=== PATIENT | female | born 1990 | race Caucasian/White ===

== ENCOUNTER 2018-12-28 06:58 | Inpatient (IN) | payer OTHER ==
[~2018-12-28] VITALS: Ht 154.9 cm; Wt 83.9 kg
[2018-12-28 07:02] VITALS: BP 126/74
[2018-12-28] MEDS ORDERED: ATIVAN0.5 MG PO (07:15)
[2018-12-28 07:26] LABS: ABSOLUTE NEUTROPHILS 4.8 thou/uL (1.4-8.2); BASOPHILS 0.4 % (0.0-2.0); EOSINOPHILS 2.7 % (0.0-3.0); HEMATOCRIT 36.8 % (37.0-47.0); HEMOGLOBIN 12.7 gm/dL (12.0-15.0); LYMPHOCYTES 28.9 % (24.0-44.0); MCH 30.3 pg (26.0-34.0); MCHC 34.6 g/dL (28.0-37.0); MCV 87.5 fL (80.0-100.0); MONOCYTES 6.1 % (1.0-8.0); PLATELET COUNT 245 thou/uL (150-400); POLYS 61.9 % (36.0-66.0); RDW 12.9 % (10.5-14.5); WBC 7.8 thou/uL (4.0-11.0)
[2018-12-28 07:35] LABS: ANION GAP 10 mmol/L (7-16); BUN 11 mg/dL (7-18); CHLORIDE 103 mmol/L (98-107); CO2 27 mmol/L (21-32); CREATININE 0.6 mg/dL (0.6-1.0); GLUCOSE 94 mg/dL (74-106); POTASSIUM 3.6 mmol/L (3.5-5.1); SODIUM 140 mmol/L (136-145)
[2018-12-28 07:41] LABS: DIRECT BILIRUBIN < 0.1 mg/dL (<0.1-0.3); SGOT 17 U/L (15-37); SGPT 25 U/L (30-65); TOTAL BILIRUBIN 0.4 mg/dL (<0.1-1.0); TOTAL PROTEIN 7.7 g/dL (6.4-8.2)
[2018-12-28 12:49] LABS: FOLIC ACID 18.4 ng/mL (8.6-58.9)
[2018-12-28 13:40] VITALS: BP 97/60
[2018-12-28] MEDS ORDERED: LEXAPRO 10 MG T10 M1 PO (14:04)
[2018-12-28] MEDS ORDERED: HYDROXYZINE HCL10 M1 PO (14:05)
[2018-12-28] MEDS ORDERED: PROBIOTIC 5 BI1 EACH PO (14:06)
[2018-12-28] MEDS ORDERED: MULTIVITAMINS1 EAC7 PO (14:08)
[2018-12-28 14:17] VITALS: BP 99/60
[2018-12-28 16:00] VITALS: BP 100/57
--- NOTE | 2018-12-28 18:31 | NUR ---
DR. HOLMAN IN TO SEE PT. PLAN FOR SURGERY IN AM AT 0830. ORDER FOR REGULAR DIET UNTIL MIDNOC. NO INCREASE IN ABD PAIN. AND KIDS HERE TO SEE PT.
[2018-12-28 21:53] VITALS: BP 124/77
--- NOTE | 2018-12-29 03:29 | NUR ---
Assumed care of pt at 1900. Pt c/o headache. Retail Performance Specialist on duty notified and new order noted. IVF infusing. Up ad julian. No abd pain. No consent in chart or orders for am surgery. Will report to am nurse. NPO after midnight. Will continue to monitor.
[2018-12-29 05:23] VITALS: BP 110/60
[2018-12-29 05:25] LABS: ABSOLUTE NEUTROPHILS 3.8 thou/uL (1.4-8.2); BASOPHILS 0.2 % (0.0-2.0); EOSINOPHILS 3.1 % (0.0-3.0); HEMATOCRIT 33.8 % (37.0-47.0); HEMOGLOBIN 11.8 gm/dL (12.0-15.0); LYMPHOCYTES 35.2 % (24.0-44.0); MCH 30.4 pg (26.0-34.0); MCHC 34.9 g/dL (28.0-37.0); MCV 87.2 fL (80.0-100.0); MONOCYTES 5.2 % (1.0-8.0); PLATELET COUNT 223 thou/uL (150-400); POLYS 56.3 % (36.0-66.0); RBC 3.87 mil/uL (4.20-5.00); RDW 13.2 % (10.5-14.5); WBC 6.8 thou/uL (4.0-11.0)
[2018-12-29 05:34] LABS: CALCIUM 8.2 mg/dL (8.5-10.1); CREATININE 0.5 mg/dL (0.6-1.0); MAGNESIUM 2.1 mg/dL (1.8-2.4); POTASSIUM 3.6 mmol/L (3.5-5.1)
[2018-12-29 07:24] LABS: ALBUMIN 3.4 g/dL (3.4-5.0); CALCIUM 8.5 mg/dL (8.5-10.1); CREATININE 0.5 mg/dL (0.6-1.0); POTASSIUM 3.7 mmol/L (3.5-5.1); TOTAL BILIRUBIN 0.3 mg/dL (<0.1-1.0); TOTAL PROTEIN 6.7 g/dL (6.4-8.2)
--- NOTE | 2018-12-29 07:57 | NUR ---
PATIENT TAKEN TO PRE OP AT THIS TIME. PT ALERT XS 4 NO PAIN OR RESP DISTRESS.
--- NOTE | 2018-12-29 12:21 | NUR ---
PT BACK IN ROOM AT THIS TIME ALERT XS 4 NO PAIN NO RESP DISTRESS, IV FLUIDS INFUSING ORDERED. WILL GIVE AM MEDS SOON PATIENT SETTLED. PT TO EAT REG DIET. FRIENDS AT BEDSIDE.
[2018-12-29 18:56] VITALS: BP 110/60
--- NOTE | 2018-12-30 03:21 | NUR ---
PATIENT ALERT AND ORIENTED X4. UP AND ABOUT. DENIES PAIN. 4 SMALL INCISIONS ON ABD HEALING. EDGES WELL APPROXIMATED, NO S/S OF INFECTION. IV FLUIDS RUNNING IN DANUTA. SLEPT MOST OF NIGHT.
[2018-12-30 04:26] VITALS: BP 100/49
[2018-12-30 07:10] VITALS: BP 116/64
[2018-12-30] MEDS ORDERED: FAMOTIDINE20 MG/2 M2 IV PUSH (11:49)
[2018-12-30] MEDS ORDERED: CELEXA 20 MG TA20 MG PO (11:49)
[2018-12-30] MEDS ORDERED: HYDROCODONE-AP1 EAC6 PO (11:49)
[2018-12-30] MEDS ORDERED: AMBIEN 5 MG TABL5 M1 PO (12:10)
[2018-12-30] MEDS ORDERED: HYDROXYZINE HCL10 M1 PO (12:13)
[2018-12-30] MEDS ORDERED: ACETAMINOPHEN325 M1 PO (12:13)
[2018-12-30] MEDS ORDERED: MIRALAX17 GM PO (12:15)
[2018-12-30 12:50] VITALS: BP 116/64
--- NOTE | 2018-12-30 13:08 | NUR ---
ASSUMED CARE OF PT AT 0700. ASSESSMENT COMPLETED. A&O,X4. POD1 LAP ELIZABETH, 4 LAP SITES WITH DERMABOND INTACT NO BLEEDING OR DRAINAGE NOTED. TYLENOL GIVEN ORDERED FOR PAIN, PAIN WELL CONTROLLED. NO N/V/D. TOLERATING REGULAR DIET. PASSING FLATUS. NEW DISCHARGE ORDERS. NO NEW SCRIPTS GIVEN. D/C INFORMATION DISCUSSED AT BEDSIDE WITH PT, STATE NO QUESTIONS OR CONCERNS. IV REMOVED, NO ACTIVE BLEEDING. PT REFUSED WHEELCHAIR ESCORT. PT LEFT IN STABLE CONDITION AMBULATORY WITH ALL BELONGINGS.
--- NOTE | 2018-12-31 11:06 | PATH ---
[facility] [address] [place] [address] PATHOLOGY RPT PROCEDURE Name: JOSE M BEAVERS Room #: 417-I [facility] IN .R.#: [id number] ������������������ Admission: 12/28/18 ������������������ Date of : 86 Discharge: 12/30/18 Report #: [id number] Path Case #: [id number] [facility] Accession Number: [id number] . 01 Material submitted: . gallbladder - GALLBLADDER . 01 Clinical history: . cholelithiasis with dilated duct . 02 Diagnosis: Gallbladder, cholecystectomy: - Mild chronic cholecystitis. - Cholesterolosis. - Cholelithiasis. (IUV/db; 12/30/2018) LBQ/12/30/2018 . 02 Electronically signed: . Anyi Rolle MD, Pathologist NPI- [id number] . 01 Gross description: . The specimen is received in formalin, labeled "Jose M Beavers, gallbladder", is a previously opened gallbladder measuring 7.7 cm in length and 3.0 cm in maximum diameter with a wrinkled, kessler-jackson serosa. The cystic duct is impacted by a calculus and is dilated. The mucosa is kessler, granular with cholesterolosis. The wall is 0.2 cm in average thickness. Within the container there are multiple irregular pale green calculi and its fragments measuring 2.8 x 2.4 x 0.7 cm in aggregate. Panel Wirer tissue is submitted in A1. ([facility]; 12/29/2018) [facility]/ . 02 Pathologist provided ICD-10: K80.10, K82.4 . 02 CPT . 022668 Specimen Comment: A courtesy copy of this report has been sent to Specimen Comment: [phone], . Specimen Comment: Report sent to / DR FLYNN Performed at: [address] [id number] MD Alli Ch MD Phone: [phone] Performed at: 02 [place] [address] PATHOLOGY RPT PROCEDURE Name: JOSE M BEAVERS Room #: 417-I [facility] IN M.R.#: [id number] ������������������ Admission: 12/28/18 ������������������ Date of : 86 Discharge: 12/30/18 Report #: [id number] Path Case #: [id number] [address] [place], [place] [id number] MD Anyi Rolle MD Phone: [phone]
== END 2018-12-30 13:20 | disposition home or self-care (01) | DRG 418 ==
LOC: ER 06:58 → 4E 09:40 → EROBS 09:40 → 4E 14:17
PROVIDERS: Emergency Medicine; Nurse Practitioner; Surgery; ADMIT Internal Medicine
PROC: 0FT44ZZ Resection of Gallbladder, Percutaneous Endoscopic Approach (ICD-10-PCS; principal; 2018-12-29)
DX: K80.00 Calculus of gallbladder with acute cholecystitis without obstruction (principal); E44.1 Mild protein-calorie malnutrition; F41.9 Anxiety disorder, unspecified; Z98.891 History of uterine scar from previous surgery; Z79.899 Other long term (current) drug therapy; Z68.35 Body mass index [BMI] 35.0-35.9, adult
CPT/HCPCS: 10084; 50010; 50101; 50411; 50555; 51489; 51975; 52265; 52266; 54118; 55245; 56462; 56525; 56526; 62110; 62900; 70005